=== PATIENT | female | born 1935 | race Caucasian/White ===

== ENCOUNTER → 2016-12-16 | Outpatient (CLI) | payer BC | LOC: FIMAGING 07:54 | PROVIDERS: ATTEND Internal Medicine | DX: M79.89 Other specified soft tissue disorders (principal); G35 Multiple sclerosis ==

== ENCOUNTER 2018-04-11 10:23 | Inpatient (IN) | payer BC ==
[2018-04-11] MEDS ORDERED: NS 1,000 ML IV ONE (10:26)
--- NOTE | 2018-04-11 10:30 | EDPHY ---
H & P Time Seen by Provider: 04/11/18 10:29 HPI/ROS: CHIEF COMPLAINT: Stroke alert HISTORY OF PRESENT ILLNESS: The patient is brought in emergently by paramedics after she was observed to developed right-sided weakness and difficulty with speech at 8:00 a.m. This morning. The patient has a history of chronic left- sided weakness secondary to multiple sclerosis. The patient is brought in by paramedics with reported improvement in her right-sided weakness and speech impediment. The patient arrives in the emergency department without acute complaints. She denies headache. REVIEW OF SYSTEMS: A comprehensive 10 point review of systems is otherwise negative aside from elements mentioned in the history of present illness. Source: Patient, Family, EMS - Personal History Current Tetanus/Diphtheria Vaccine: Yes - Medical/Surgical History Other PMH: Past medical history: Multiple sclerosis - Family History Significant Family History: No pertinent family hx - Social History Smoking Status: Never smoked - Physical Exam Exam: General Appearance: Alert, no distress Eyes: Pupils equal and round no pallor or injection ENT, Mouth: Mucous membranes moist Respiratory: There are no retractions, lungs are clear to auscultation Cardiovascular: Regular rate and rhythm Gastrointestinal: Abdomen is soft and nontender, no masses, bowel sounds normal Neurological: Alert and oriented x4, chronic dense left weakness from her multiple sclerosis, right pronator drift, right truncal weakness noted, 5-out of 5 strength right lower extremity, no facial droop appreciated, slightly abnormal finger to nose Skin: Warm and dry, no rashes Musculoskeletal: Neck is supple nontender Extremities: symmetrical, full range of motion Constitutional: Initial Vital Signs Temperature (C) 36.3 C 04/11/18 10:44 Heart Rate 60 04/11/18 10:44 Respiratory Rate 12 04/11/18 10:44 Blood Pressure 93/53 L 04/11/18 10:44 O2 Sat (%) 94 04/11/18 10:44 O2 Delivery Mode Room Air Allergies/Adverse Reactions: No Known Allergies Allergy (Unverified 04/11/18 10:44) Medical Decision Making - Diagnostics EKG Interpretation: EKG: Interpreted by me. Impression: NSR, prolonged OH. Imaging Results: Imaging Impressions Head CT 04/11/18 10:24 Impression: 1. Moderate atrophy. 2. No hemorrhage, mass effect, or definite acute peripheral infarct. 3. Extensive nonspecific hypodensities in the white matter of bilateral cerebral hemispheres similar to the prior studies probably related to underlying MS with superimposed microvascular ischemic disease. Other possibility includes post-infectious/post-inflammatory sequela. Small white matter lacunar infarcts may also have this appearance. If symptoms worsen, additional imaging may be necessary. Findings discussed with Raul Monreal M.D. at 10:34 hour, 04/11/2018. ED Course/Re-evaluation: Patient presents to the ED with a reported history of acute right-sided weakness and difficulty with speech that began at 8:00 a.m. This morning. The patient has a history of multiple sclerosis. She reports she is usually able to sit up on her own. She typically is able to brush her teeth without difficulty using her right hand. The patient has no known history of prior stroke by her report. She denies any acute headache. The patient was taken for a stat noncontrast head CT scan which demonstrated evidence of extensive white matter disease. There is no evidence of an acute intracranial hemorrhage. [facility] was consulted at 10:30 a.m. for an ED evaluation. 11:00 a.m.: Neurology feels patient's neurologic symptoms or more likely related to a toxic, encephalopathic or metabolic issue and not related to ischemia. They recommend that tPA not be given. 11:30 a.m.: Collateral information is obtained from the family. The patient is typically able to transfer with a electric scooter. She is unable to safely ambulate currently likely secondary to dehydration. Urinalysis still pending. She will be admitted to the hospitalist for further evaluation treatment. Differential Diagnosis: Differential diagnosis considered includes stroke, TIA, dehydration, metabolic abnormality, urinary tract infection - Data Points Laboratory Results: Laboratory Results 04/11/18 10:58 04/11/18 10:58 04/11/18 04/11/18 04/11/18 10:58 10:58 10:31 WBC 8.07 10^3/uL 10^3/uL (3.80-9.50) RBC 3.92 10^6/uL L 10^6/uL (4.18-5.33) Hgb 12.6 g/dL g/dL (12.6-16.3) POC Hgb 12.9 gm/dL gm/dL (12.6-16.3) Hct 38.5 % % (38.0-47.0) POC Hct 38 % % (38-47) MCV 98.2 fL fL (81.5-99.8) MCH 32.1 pg pg (27.9-34.1) MCHC 32.7 g/dL g/dL (32.4-36.7) RDW 15.4 % H % (11.5-15.2) Plt Count 319 10^3/uL 10^3/uL (150-400) MPV 9.8 fL fL (8.7-11.7) Neut % (Auto) 71.3 % % (39.3-74.2) Lymph % (Auto) 17.7 % % (15.0-45.0) Dare % (Auto) 8.2 % % (4.5-13.0) Eos % (Auto) 1.7 % % (0.6-7.6) Baso % (Auto) 0.7 % % (0.3-1.7) Nucleat RBC Rel Count 0.0 % % (0.0-0.2) Absolute Neuts (auto) 5.75 10^3/uL 10^3/uL (1.70-6.50) Absolute Lymphs (auto) 1.43 10^3/uL 10^3/uL (1.00-3.00) Absolute Monos (auto) 0.66 10^3/uL 10^3/uL (0.30-0.80) Absolute Eos (auto) 0.14 10^3/uL 10^3/uL (0.03-0.40) Absolute Basos (auto) 0.06 10^3/uL 10^3/uL (0.02-0.10) Absolute Nucleated RBC 0.00 10^3/uL 10^3/uL (0-0.01) Immature Gran % 0.4 % % (0.0-1.1) Immature Gran # 0.03 10^3/uL 10^3/uL (0.00-0.10) POC Sodium 145 mEq/L mEq/L (135-145) Sodium 143 mEq/L mEq/L (135-145) POC Potassium 4.0 mEq/L mEq/L (3.3-5.0) Potassium 4.0 mEq/L mEq/L (3.5-5.2) POC Chloride 109 mEq/L mEq/L (97-110) Chloride 111 mEq/L H mEq/L (97-110) Carbon Dioxide 22 mEq/l mEq/l (22-31) Anion Gap 10 mEq/L mEq/L (6-14) POC BUN 44 mg/dL H mg/dL (7-23) BUN 46 mg/dL H mg/dL (7-23) Creatinine 0.9 mg/dL mg/dL (0.6-1.0) POC Creatinine 1.0 mg/dL mg/dL (0.6-1.0) Estimated GFR 60 Glucose 112 mg/dL H mg/dL (70-100) POC Glucose 128 mg/dL H mg/dL (70-100) Calcium 9.4 mg/dL mg/dL (8.5-10.4) POC Troponin I 04/11/18 10:30 WBC RBC Hgb POC Hgb Hct POC Hct MCV MCH MCHC RDW Plt Count MPV Neut % (Auto) Lymph % (Auto) Dare % (Auto) Eos % (Auto) Baso % (Auto) Nucleat RBC Rel Count Absolute Neuts (auto) Absolute Lymphs (auto) Absolute Monos (auto) Absolute Eos (auto) Absolute Basos (auto) Absolute Nucleated RBC Immature Gran % Immature Gran # POC Sodium Sodium POC Potassium Potassium POC Chloride Chloride Carbon Dioxide Anion Gap POC BUN BUN Creatinine POC Creatinine Estimated GFR Glucose POC Glucose Calcium POC Troponin I 0.00 ng/mL ng/mL (0.00-0.08) Medications Given: Discontinued Medications Sodium Chloride (Ns) 1,000 mls @ 0 mls/hr IV ONCE ONE; Wide Open PRN Reason: Protocol Stop: 04/11/18 10:27 Last Admin: 04/11/18 10:54 Dose: 1,000 mls Point of Care Test Results: Chemistry 04/11/18 04/11/18 10:31 10:30 POC Sodium 145 mEq/L mEq/L (135-145) POC Potassium 4.0 mEq/L mEq/L (3.3-5.0) POC Chloride 109 mEq/L mEq/L (97-110) POC BUN 44 mg/dL H mg/dL (7-23) POC Creatinine 1.0 mg/dL mg/dL (0.6-1.0) POC Glucose 128 mg/dL H mg/dL (70-100) POC Troponin I 0.00 ng/mL ng/mL (0.00-0.08) ISTAT H&H 04/11/18 10:31 POC Hgb 12.9 gm/dL gm/dL (12.6-16.3) POC Hct 38 % % (38-47) Departure - Departure Disposition: [facility] Inpatient Acute Clinical Impression: Dehydration, Generalized weakness, Multiple sclerosis Condition: Fair Referrals: Patient,NotPresent [Unknown] - As per Instructions
--- NOTE | 2018-04-11 10:49 | CPEKG ---
Test Reason : OPEN Blood Pressure : / mmHG Vent. Rate : 058 BPM Atrial Rate : 058 BPM P-R Int : 220 ms QRS Dur : 087 ms QT Int : 462 ms P-R-T Axes : 063 -21 -38 degrees QTc Int : 454 ms Sinus rhythm Prolonged WI interval Inferior infarct, old Confirmed by Raul Monreal ([id number]) on 04/11/2018 10:48:38 AM Referred By: Raul Monreal Confirmed By:Raul Monreal
[2018-04-11 11:09] LABS: PLATELET COUNT 319 10^3/uL (150-400)
--- NOTE | 2018-04-11 11:25 | PDCONSULT ---
Loop Tacker Note: [facility] Note Demographics Consult Type: Acute Stroke First Name: Veronica Last Name: Herminio Date of : 1935 Age: 83 Gender: Female Referring Provider: Dr Monreal Time of initial page ([place] ): 04/11/2018 10:38 Time of return call (): 04/11/2018 10:39 Time Ready to Initiate Telemed Consult (): 04/11/2018 10:42 HPI Additional History (Free Text): 83 year old woman history of multiple sclerosis uses a power chair at Baseline. She was in her power chair this morning ready for bahai. When family came back to find her she was asleep in her chair which is unusual for her. They woke her up in her speech seem more difficult and she is having generalized weakness. If Baseline she is paralyzed on the left side. Her right side feels weaker than normal. Her speech is slightly slurred. CT scan is performed in shows chronic white matter changes no acute abnormality. Exam Mental Status: awake, alert + oriented x 3, follows commands Language: very mild dysarthria and soft voice (less than normal for her) Cranial Nerves: extra ocular movements intact, normal visual tellez, normal facial sensation Motor: R upper extremity weakness, L upper extremity weakness, L lower extremity weakness, Right mild drift with asterixis like movements. Left plegia is chronic NIHSS Time (): 04/11/2018 10:58 LOC 1a: 0 = Alert; keenly responsive LOC 1b: 0 = Answers both questions correctly LOC Commands: 0 = Performs both tasks correctly Best Gaze: 0 = Normal Visual: 0 = No visual loss Facial Palsy: 0 = Normal symmetrical movements Motor Arm L: 4 = No movement Motor Arm R: 1 = Drift; limb holds 90 (or 45) degrees, but drifts down before full 10 seconds; does not hit bed or other support Motor Leg L: 3 = No effort against gravity; leg falls to bed immediately Motor Leg R: 1 = Drift; leg falls by the end of the 5-second period but does not hit bed Limb Ataxia: 0 = Absent Sensory: 0 = Normal; no sensory loss Best Language: 0 = No aphasia; normal Dysarthria: 1 = Sprn-yr-peplizuh dysarthria; patient slurs at least some words Extinction + Inattention: 0 = No abnormality NIHSS: [address]: no bleed Assessment: Generalized weakness and lethargy superimposed on her baseline left sided paralysis. Favor a systemic illness over acute stroke. Plan Lytic/Intervention: NOT IV or IA candidate Labs: B 12, CBC, Comprehensive metabolic panel, Lipid Panel, TSH, UA Imaging: MRI brain without Therapy/Eval: NPO until cleared by swallow evaluation, PT/OT, Speech/Swallow therapy consult VTE Prophylaxis: SCD, Lovenox 40 mg subcutaneously q day Other: telemetry monitoring, I have discussed my recommendations with the referring provider Disposition: admit [facility] Telemedicine: Interactive 2 way audio and visual telecommunication technology was utilized during this visit. Provider Location: [place]
--- NOTE | 2018-04-11 12:04 | PDGENHP ---
History and Physical - Chief Complaint Weakness - History of Present Illness Patient is an 82-year-old female with past medical history of advanced multiple sclerosis, hypertension, and hypothyroid who presented to the emergency room with complaints of new right-sided weakness. Patient is dependent on a motorized wheelchair to get around at baseline and was sitting in her chair and when the daughter went to check on her she noticed that she was asleep in the chair, which per the daughter is unusual for her mother to do. They woke her up and she was complaining of right-sided weakness and difficulty with speech. This occurred at approximately 8:00 a.m. This morning. She has chronic left- sided weakness and atrophy from her multiple sclerosis, but felt that she had new right-sided weakness and speech difficulty. In the emergency department the patient felt that her speech had returned to baseline but she still had right-sided weakness. She denied any nausea vomiting, headache, blurry vision, racing heart, chest pain or any other acute complaints. History Information - Allergies/Home Medication List Allergies/Adverse Reactions: banana Allergy (Verified 04/11/18 13:23) Vomiting Home Medications: Hydrochlorothiazide [HCTZ (*)] 12.5 mg PO DAILY 04/11/18 [Last Taken Unknown] Levothyroxine [Synthroid 100 mcg (*)] 100 mcg PO DAILY06 04/11/18 [Last Taken Unknown] Tolterodine Tartrate [Detrol] 2 mg PO DAILY 04/11/18 [Last Taken Unknown] Valsartan 320 mg PO DAILY 04/11/18 [Last Taken Unknown] Zolpidem Tartrate [Ambien] 10 mg PO HS PRN 04/11/18 [Last Taken Unknown] amLODIPine BESYLATE [Norvasc 5 mg (*)] 5 mg PO DAILY 04/11/18 [Last Taken Unknown] tiZANidine HCL [Zanaflex] 8 mg PO HS 04/11/18 [Last Taken Unknown] I have personally reviewed and updated: family history, medical history, social history, surgical history - Past Medical History Additional medical history: htn,hypothyroid, ms - Surgical History Additional surgical history: hip surgery for fracture, - Family History Positive for: cancer - Social History Smoking Status: Never smoked Review of Systems Review of Systems: ROS: 10pt was reviewed & negative except for what was stated in HPI & below Physical Exam Physical Exam: Temp Pulse Resp BP Pulse Ox 36.3 C 61 14 102/59 L 95 04/11/18 10:48 04/11/18 10:48 04/11/18 10:48 04/11/18 10:48 04/11/18 10:48 Constitutional: no apparent distress, appears nourished, not in pain Eyes: PERRL, anicteric sclera, EOMI Ears, Nose, Mouth, Throat: moist mucous membranes, hearing normal, ears appear normal, no oral mucosal ulcers Cardiovascular: regular rate and rhythym, no murmur, rub, or gallop, No edema Respiratory: no respiratory distress, no rales or rhonchi, clear to auscultation Gastrointestinal: normoactive bowel sounds, soft, non-tender abdomen, no palpable masses Genitourinary: no bladder fullness, no bladder tenderness Skin: warm, normal color, no rashes or abrasions, no fluctuance, no induration, No mottled Musculoskeletal: full muscle strength, no muscle tenderness, normal joint ROM, no joint effusions Psychiatric: interacting appropriately, not anxious, not encephalopathic, thought process linear Lymph, Heme, Immunologic: no cervical LAD, no supraclavicular LAD Lab Data & Imaging Review 04/11/18 10:58 04/11/18 10:58 WBC 8.07 10^3/uL (3.80-9.50) 04/11/18 10:58 RBC 3.92 10^6/uL (4.18-5.33) L 04/11/18 10:58 Hgb 12.6 g/dL (12.6-16.3) 04/11/18 10:58 POC Hgb 12.9 gm/dL (12.6-16.3) 04/11/18 10:31 Hct 38.5 % (38.0-47.0) 04/11/18 10:58 POC Hct 38 % (38-47) 04/11/18 10:31 MCV 98.2 fL (81.5-99.8) 04/11/18 10:58 MCH 32.1 pg (27.9-34.1) 04/11/18 10:58 MCHC 32.7 g/dL (32.4-36.7) 04/11/18 10:58 RDW 15.4 % (11.5-15.2) H 04/11/18 10:58 Plt Count 319 10^3/uL (150-400) 04/11/18 10:58 MPV 9.8 fL (8.7-11.7) 04/11/18 10:58 Neut % (Auto) 71.3 % (39.3-74.2) 04/11/18 10:58 Lymph % (Auto) 17.7 % (15.0-45.0) 04/11/18 10:58 [place] % (Auto) 8.2 % (4.5-13.0) 04/11/18 10:58 Eos % (Auto) 1.7 % (0.6-7.6) 04/11/18 10:58 Baso % (Auto) 0.7 % (0.3-1.7) 04/11/18 10:58 Nucleat RBC Rel Count 0.0 % (0.0-0.2) 04/11/18 10:58 Absolute Neuts (auto) 5.75 10^3/uL (1.70-6.50) 04/11/18 10:58 Absolute Lymphs (auto) 1.43 10^3/uL (1.00-3.00) 04/11/18 10:58 Absolute Monos (auto) 0.66 10^3/uL (0.30-0.80) 04/11/18 10:58 Absolute Eos (auto) 0.14 10^3/uL (0.03-0.40) 04/11/18 10:58 Absolute Basos (auto) 0.06 10^3/uL (0.02-0.10) 04/11/18 10:58 Absolute Nucleated RBC 0.00 10^3/uL (0-0.01) 04/11/18 10:58 Immature Gran % 0.4 % (0.0-1.1) 04/11/18 10:58 Immature Gran # 0.03 10^3/uL (0.00-0.10) 04/11/18 10:58 POC Sodium 145 mEq/L (135-145) 04/11/18 10:31 Sodium 143 mEq/L (135-145) 04/11/18 10:58 POC Potassium 4.0 mEq/L (3.3-5.0) 04/11/18 10:31 Potassium 4.0 mEq/L (3.5-5.2) 04/11/18 10:58 POC Chloride 109 mEq/L (97-110) 04/11/18 10:31 Chloride 111 mEq/L (97-110) H 04/11/18 10:58 Carbon Dioxide 22 mEq/l (22-31) 04/11/18 10:58 Anion Gap 10 mEq/L (6-14) 04/11/18 10:58 POC BUN 44 mg/dL (7-23) H 04/11/18 10:31 BUN 46 mg/dL (7-23) H 04/11/18 10:58 Creatinine 0.9 mg/dL (0.6-1.0) 04/11/18 10:58 POC Creatinine 1.0 mg/dL (0.6-1.0) 04/11/18 10:31 Estimated GFR 60 04/11/18 10:58 Glucose 112 mg/dL (70-100) H 04/11/18 10:58 POC Glucose 128 mg/dL (70-100) H 04/11/18 10:31 Calcium 9.4 mg/dL (8.5-10.4) 04/11/18 10:58 POC Troponin I 0.00 ng/mL (0.00-0.08) 04/11/18 10:30 Visualized and Interpreted imaging results: Yes Visualized and Interpreted EKG results: Yes Assessment & Plan Assessment: Generalized weakness- I discussed the case with the emergency room physician. Neurology was consulted who felt that this did not represent an acute stroke but likely increased generalized weakness in the setting of dehydration. I reviewed the CT which showed no acute abnormality and only chronic changes. Vital signs within normal limits, and labs without any abnormality suggestive of infection or other process. MRI obtained which shows worsening of her white matter disease. Her worsening weakness may represent either an MS flare or worsening of her multiple sclerosis overall. 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 Has chronic left-sided weakness with atrophy. -continue tizanidine for spasticity -continue Detrol Hypertension- blood pressure on the low side here. Takes Norvasc, hydrochlorothiazide, and valsartan. Will hold the diuretic for now. Hypothyroid- continue home Synthroid Prophylaxis- SCDs and Lovenox Fluids- intravenous saline Electrolytes- within normal limits Nutrition- NPO until clear by speech Cor- DNR Dispo- observation for generalized weakness
[2018-04-11] MEDS ORDERED: ONDANSETRON DISINTEGRATING 4 MG TAB PO PRN (12:13)
[2018-04-11] MEDS ORDERED: ACETAMINOPHEN 325 MG TAB PO PRN (12:13)
[2018-04-11] MEDS ORDERED: ONDANSETRON 4 MG/2 ML VIAL IVP PRN (12:13)
[2018-04-11] MEDS ORDERED: NS 1,000 ML IV SCH (12:15)
[2018-04-11] MEDS ORDERED: NS 500 ML IV ONE (23:39)
[2018-04-12 04:53] LABS: PLATELET COUNT 303 10^3/uL (150-400)
[2018-04-12] MEDS: LEVOTHYROXINE 100 MCG TAB PO SCH (06:12)
--- NOTE | 2018-04-12 10:36 | GCON ---
NEUROLOGY CONSULT REFERRING PHYSICIAN: Burt Walker MD CHIEF COMPLAINT: Multiple sclerosis. HISTORY OF PRESENT ILLNESS: Ms. Durham is a very pleasant 83-year-old lady who has a previous diagnosis of primary progressive multiple sclerosis. She sees Neurology as an outpatient but cannot recall the neurologist's name this morning. In any case, she is not on disease-modifying therapy due to her diagnosis per the patient. She is on symptomatic medications and has severe disability, including spastic left-sided hemiplegia and waxing and waning generalized weakness. Her MRI done with this admission shows severe, diffuse white matter disease without any diffusion-weighted abnormalities to suggest acute stroke or acute demyelination. Apparently, the patient became encephalopathic yesterday and unresponsive for a period of time and felt, when she became lucid again, that she had generalized weakness but note noticed it more on her right because this is her only functional side. She was brought in to the hospital. Initial labs showed a normal creatinine. Urinalysis shows 2+ leukocyte esterase, 25-50 urine white blood cells and 3+ bacteria. She has no symptoms of dysuria per patient. She also has some fluctuating blood pressures. She is feeling better after getting intravenous hydration. No seizures or convulsive events. REVIEW OF SYSTEMS: A 10-point review of systems was done, only pertinent to the HPI. For past medical history, social history, family history, home medications and allergies, see Dr. Walker's H and P. PHYSICAL EXAM: VITAL SIGNS: Blood pressure 130/70, afebrile 36.6, respirations 14 per minute. GENERAL: In no acute distress. Very pleasant. She is awake and alert and lucid. NEUROLOGIC: There is no aphasia on exam. No dysarthria on exam this morning. She has spastic left-sided hemiplegia and weakness on the right side as well which, according to the patient, is chronic as well. She feels back to her baseline but "generally weak." No convulsive events or myoclonus. IMPRESSION AND PLAN: 1. Multiple sclerosis. 2. Urinary tract infection. 3. Generalized weakness Overall, the patient's clinical history suggests pseudo-exacerbation symptoms in the setting of advanced multiple sclerosis and urinary tract infection. This was discussed along with the patient, nursing and the hospitalist team. They plan to treat with antibiotics and fluids as needed. I agree with this plan. MRI brain does not show any diffusion-weighted abnormalities to suggest acute stroke or acute demyelination at this point. PT, OT, Speech Therapy can be consulted to help with therapies and disposition planning. No further recommendations. We will continue to follow this very pleasant patient as needed. Please do not hesitate to call if there are any questions or changes in neurologic status with her. Seventy total minutes floor time reviewing EHR, over 50% in counseling and coordination of care. /[id number]/MODL MTDD
[2018-04-12] MEDS: ENOXAPARIN 40 MG/0.4 ML SYR SC SCH (10:49)
[2018-04-12] MEDS: amLODIPine BESYLATE 5 MG TAB PO SCH (10:50)
[2018-04-12] MEDS: VALSARTAN 160 MG TAB PO SCH (10:50)
[2018-04-12] MEDS: TOLTERODINE TARTRATE 1 MG TAB PO SCH (10:50)
--- NOTE | 2018-04-12 11:24 | HOSPPROG ---
Hospitalist Progress Note Assessment/Plan: 83y female with c/o weakness and pain. First encounter, chart reviewed. #Acute on chronic generalized weakness -Neurology was consulted, D/W Dr Raphael -MRI no acute stroke -likely related to dehydration ad UTI -monitor on telemetry #UTI -start CTX -send urine cx #Multiple sclerosis -primary progressive MS. Has chronic left-sided weakness with atrophy. -continue tizanidine for spasticity -continue Detrol #Hypertension - blood pressure on the low side here -Takes Norvasc, hydrochlorothiazide, and valsartan -Will hold the diuretic for now #Dehydration -cont IVF -poor po intake #Hypothyroid - continue home Synthroid Prophylaxis- SCDs and Lovenox Fluids- intravenous saline Electrolytes- within normal limits Nutrition- NPO until clear by speech Cor- DNR #Dispo -change to inpt staus -needs further therapy and eval -IV abx -Await cx results -PT/OT -HHC vs SNF, lives at home with daughter and son in law -home alone during the day Subjective: Feels better but still very tired and weak. No pain. No other issues. Objective: Vital Signs Temp Pulse Resp BP Pulse Ox 37.0 C 92 20 167/74 H 91 L 04/12/18 11:15 04/12/18 11:15 04/12/18 11:15 04/12/18 11:15 04/12/18 11:15 Laboratory Results 04/12/18 04:33 04/12/18 04:33 04/11/18 04/12/18 04/13/18 05:59 05:59 05:59 Intake Total 2225 Output Total 570 500 Balance 1655 -500 - Physical Exam Constitutional: appears nourished, not in pain, chronically ill appearing Eyes: PERRL, anicteric sclera, EOMI Ears, Nose, Mouth, Throat: moist mucous membranes, hearing normal, ears appear normal Cardiovascular: regular rate and rhythym, No JVD, No edema Respiratory: no respiratory distress, no rales or rhonchi, reduced air movement Gastrointestinal: normoactive bowel sounds, No tenderness, No ascites Skin: warm, normal color, No erythema Musculoskeletal: no joint effusions, generalized weakness, No normal joint ROM Neurologic: AAOx3, weakness Psychiatric: not anxious, not encephalopathic, thought process linear ICD10 Worksheet Patient Problems: Problems Problem Status Onset Dehydration Acute Generalized weakness Acute Multiple sclerosis Acute
--- NOTE | 2018-04-12 12:40 | PDMN ---
Medical Necessity Medical necessity: MCG: M300 UTI- A-2 days: pt with acute on chronic weakness with dehydration, speech difficulties , and UTI PT with PMHx: Primary progressive MS, HTN, Hypothyroid, pt status changed to INPT 04/12 for ongoing med nec care- further eval, monitoring and tx of UTI pt will begin IV abx, awaiting urine CX, further tele monitoring, pt also has poor PO intake, will be NPO until cleared by speech. PT/OT.
--- NOTE | 2018-04-12 13:27 | ASMTCMCOM ---
CM Note CM Note Notes: CM spoke to Giselle Mota NP regarding this pt. Pt is a 83 y/o female admitted for weakness. Pt uses a motorized wheelchair at baseline. Therapies have been ordered and awaiting recommendations. Needs are TBD at this time. CM to follow. Plan: TBD Date Signed: 04/12/2018 01:23 PM Electronically Signed By:DARCI Forman
[2018-04-13] MEDS: LEVOTHYROXINE 100 MCG TAB PO SCH (05:22)
[2018-04-13 05:44] LABS: PLATELET COUNT 327 10^3/uL (150-400)
[2018-04-13] MEDS: ENOXAPARIN 40 MG/0.4 ML SYR SC SCH (08:26)
[2018-04-13] MEDS: VALSARTAN 160 MG TAB PO SCH (08:26)
[2018-04-13] MEDS: TOLTERODINE TARTRATE 1 MG TAB PO SCH (08:27)
[2018-04-13] MEDS: amLODIPine BESYLATE 5 MG TAB PO SCH (08:27)
--- NOTE | 2018-04-13 11:10 | ASMTCMCOM ---
CM Note CM Note Notes: CM met w/ pt for dispo planning. Therapies are both recommending HC vs SNF. Pt reports that she uses a motorized wheelchair to get around. Pt feels that she is pretty much at her baseline. Pt reports that she has left sided weakness due to her MS. Pt would like HC. CM made a referral to [facility]. [facility] is able to accept. CM to follow. Plan: [facility]: PT, OT, SPL Date Signed: 04/13/2018 11:10 AM Electronically Signed By:DARCI Forman
--- NOTE | 2018-04-13 14:23 | HOSPPROG ---
Hospitalist Progress Note Assessment/Plan: 83y female with c/o weakness and pain. First encounter, chart reviewed. #Acute on chronic generalized weakness -was seen and evaluated by neurology -MRI shows no acute stroke -likely related to dehydration (patient says she doesn't drink much water and is on HCTZ) -tele shows sinus w infrequent PVC -she is feeling much closer to her baseline #pyuria -start CTX (has had 2 doses) -urine cx shows normal kellie #Multiple sclerosis -primary progressive MS. Has chronic left-sided weakness with atrophy. -continue tizanidine for spasticity -continue Detrol #Hypertension - resumed home medications #hypokalemia -added oral dose of K #Dehydration -resolved, dc fluids #Hypothyroid - Synthroid #plan: will dc in the morning and write out parameters as to when to hold her bp meds. Subjective: Nancy is feeling closer to her baseline, doesn't like to drink water because it is so difficult for her to get to the bathroom Objective: Vital Signs Temp Pulse Resp BP Pulse Ox 37.0 C 90 17 158/76 H 91 L 04/13/18 11:45 04/13/18 11:45 04/13/18 11:45 04/13/18 11:45 04/13/18 11:45 Laboratory Results 04/13/18 05:32 04/13/18 05:32 04/12/18 04/13/18 04/14/18 05:59 05:59 05:59 Output Total 1675 Balance -1675 - Physical Exam Constitutional: not in pain, chronically ill appearing Eyes: PERRL Ears, Nose, Mouth, Throat: hearing normal Cardiovascular: regular rate and rhythym Respiratory: no respiratory distress Gastrointestinal: normoactive bowel sounds Skin: warm Musculoskeletal: other (left side with paralysis due to the MS, can bear weight on left but unable to walk, is wheelchair bound) Neurologic: AAOx3 Psychiatric: interacting appropriately, not anxious, not encephalopathic ICD10 Worksheet Patient Problems: Problems Problem Status Onset Dehydration Acute Generalized weakness Acute Multiple sclerosis Acute
[2018-04-13] MEDS: POTASSIUM CL 20 MEQ TAB PO SCH (14:48)
[2018-04-13] MEDS ORDERED: MELATONIN 3 MG TAB PO SCH (21:00)
[2018-04-14] MEDS: LEVOTHYROXINE 100 MCG TAB PO SCH (05:16)
[2018-04-14] MEDS: VALSARTAN 160 MG TAB PO SCH (08:26)
[2018-04-14] MEDS: ENOXAPARIN 40 MG/0.4 ML SYR SC SCH (08:26)
[2018-04-14] MEDS: amLODIPine BESYLATE 5 MG TAB PO SCH (08:26)
[2018-04-14] MEDS: TOLTERODINE TARTRATE 1 MG TAB PO SCH (08:26)
[2018-04-14] MEDS: POTASSIUM CL 20 MEQ TAB PO SCH (08:26)
[2018-04-14] MEDS ORDERED: HYDROCHLOROTHIAZIDE 12.5 MG CAP PO SCH (09:00)
--- NOTE | 2018-04-14 11:03 | HOSPPROG ---
Hospitalist Progress Note Assessment/Plan: 83y female with c/o weakness and pain. #Acute on chronic generalized weakness -was seen and evaluated by neurology -MRI shows no acute stroke -likely related to dehydration (patient says she doesn't drink much water and is on HCTZ) -tele shows sinus w infrequent PVC -she is feeling much better #pyuria -start CTX (has had 2 doses) -urine cx shows normal kellie #Multiple sclerosis -primary progressive MS. Has chronic left-sided weakness with atrophy. -continue tizanidine for spasticity -continue Detrol #Hypertension - resumed home medications #hypokalemia -added oral dose of K #Dehydration -resolved, dc fluids #Hypothyroid - Synthroid #plan: dc w home care with close f/u w her PCP Subjective: Nancy is feeling well, no complaints. Objective: Vital Signs Temp Pulse Resp BP Pulse Ox 36.4 C 75 16 145/87 H 97 04/14/18 07:34 04/14/18 07:34 04/14/18 07:34 04/14/18 08:26 04/14/18 07:34 Laboratory Results 04/13/18 05:32 04/13/18 05:32 04/13/18 04/14/18 04/15/18 05:59 05:59 05:59 Intake Total 350 Output Total 1675 Balance -1675 350 - Physical Exam Constitutional: no apparent distress, appears nourished, not in pain Eyes: PERRL Ears, Nose, Mouth, Throat: hearing normal Respiratory: no respiratory distress Skin: warm Musculoskeletal: generalized weakness Neurologic: AAOx3 Psychiatric: interacting appropriately, not anxious, not encephalopathic ICD10 Worksheet Patient Problems: Problems Problem Status Onset Dehydration Acute Generalized weakness Acute Multiple sclerosis Acute
--- NOTE | 2018-04-14 11:08 | PDIAF ---
- Diagnosis Diagnosis: acute on chronic weakness, MS, htn, dehydration Code Status: Do Not Resuscitate - Medication Management Discharge Medications: electronically signed and located in the Home Medication List. - Orders Services needed: Home Care, Registered Nurse, Physical Therapy, Occupational Therapy Home Care Face to Face: I certify that this patient was under my care and that I had the required [id number] encounter meeting the encounter requirements on the discharge day. My findings support the fact that the patient is homebound as defined in Home Care Face to Face Continued: CMS Chapter 7 Medicare Benefits Manual 30.1.1 , The condition of the patient is such that there exists a normal inability to leave home and consequently, leaving home would require a considerable and taxing effort. Diet Recommendation: no restrictions on diet Diet Texture: Dysphagia 3 - Advanced - Moist, Bite-Size, Thin Liquids Additional Instructions: do not take your diuretic, HCTZ, if you are dehydrated or sick check your blood pressure in the morning; if the systolic (top #) is <110; hold your blood pressure medications-the Norvasc, Valsartan, and HCTZ try Melatonin at night for sleep; would recommend stopping Ambien or trying to take half your dose; this medication can cause weakness Take good care of yourself!!!! - Follow Up Care Current Providers and Referrals: Patient,NotPresent [Unknown] - As per Instructions
[2018-04-14 11:25] VITALS: BP 123/94
--- NOTE | 2018-04-14 11:34 | ASMTLACE ---
LACE Length of stay for Answers: 2 days current admission Acuity / Level of Answers: Yes Care: Did the patient have an inpatient admission? Comorbidities - select Answers: Other Notes: MS all that apply # of Emergency department Answers: 1-2 visits in the last 6 months Score: 7 Date Signed: 04/14/2018 11:34 AM Electronically Signed By:Nancy Mckeon RN
--- NOTE | 2018-04-14 11:57 | ASMTCMCOM ---
CM Note CM Note Notes: Spoke w/pt and dtr, will dc home w/[facility] (RN/PT/OT/STICK WELDER) Date Signed: 04/14/2018 11:57 AM Electronically Signed By:Nancy Mckeon RN
--- NOTE | 2018-04-14 12:03 | ASMTDCNOTE ---
Case Management Discharge Discharge Order Complete? Answers: Yes Patient to Obtain Answers: via Family Medications Transportation Arranged Answers: Family/Friends Faxed Final Orders Answers: Yes Agency/Facility Transfer Answers: Yes Report Printed & Faxed to Receiving Agency Family Notified Answers: Yes Discharge Comments Notes: D/w KILN MECHANIC, final orders in[facility]rese [facility] at [facility] notifed, KILN MECHANIC adding CONSUMER EDUCATION SPECIALIST. Date Signed: 04/14/2018 12:02 PM Electronically Signed By:Nancy Mckeon RN
--- NOTE | 2018-04-14 13:38 | GDS ---
[f rep st] DISCHARGE SUMMARY DISCHARGE DIAGNOSES: 1. Acute on chronic weakness. 2. Pyuria. 3. Multiple sclerosis with chronic left-sided weakness and atrophy. 4. Hypertension. 5. Hypokalemia. 6. Dehydration. 7. Hypothyroidism. HISTORY OF PRESENT ILLNESS: Briefly, the patient is a very sweet 83-year-old woman with a history of multiple sclerosis. She had become encephalopathic and unresponsive for a period of time and became lucid. There was concern that she had a stroke. Vasquez Mike was called and consulted. They thought it was likely related to a medical condition and not a stroke. She had an MRI done, which showed severe diffuse white matter disease without any diffusion-weighted abnormalities to suggest acute stroke or acute demyelination. She was treated with IV fluids. In addition, there was concern that she had a urinary tract infection. She received full treatment with ceftriaxone. Today, she is markedly better. She will be discharged home with home care. The patient lives with her daughter and son-in-law. HOSPITAL COURSE PER PROBLEM: 1. Acute on chronic generalized weakness. MRI showed no acute stroke. In talking with the patient, I suspect it was mainly related to dehydration. She is on hydrochlorothiazide. She does not like to drink water, because it is so difficult for her to get to the bathroom secondary to her MS. I recommended that she avoid hydrochlorothiazide if she is ever sick or not taking in adequate intake. 2. Pyuria. She was treated with ceftriaxone. Her urine culture shows normal kellie. 3. MS. This is primarily progressive MS. She has chronic left-sided weakness with atrophy. She is on Tizanidine for spasticity, also on Detrol. 4. Hypertension. Resumed her home medications. 5. Hypokalemia. She was given a dose of oral potassium. 6. Dehydration, resolved with fluids. 7. Hypothyroidism on Synthroid. DISCHARGE CONDITION: Stable. Blood pressure is 123/94, heart rate of 87, respiratory rate 22, O2 saturation on room air 93%, temperature 36.3 Celsius. MEDICATIONS AT DISCHARGE: Please see the EMR. DISCHARGE INSTRUCTIONS: 1. Recommending to not take her hydrochlorothiazide if she is dehydrated or sick. 2. Check her blood pressure in the morning. If her systolic is less than 110 recommending she hold her blood pressure medications. This may contribute to her weakness. 3. Recommending to stop Ambien at night or take half the dose, or she can substitute this with melatonin. Greater than 30 minutes spent discharging and coordinating her care. /[id number]/MODL MTDD
--- NOTE | 2018-04-14 16:42 | ASDISCHSUM ---
Discharge Information Plan Status:Home with Home Health Medically Cleared to Leave: Discharge Date:04/14/2018 01:03 PM CM D/C Disposition:Home Health Service ADT D/C Disposition:Home Health Service Projected Discharge Date:04/15/2018 11:00 AM Transportation at D/C:Family Discharge Delay Reason: Follow-Up Date:04/15/2018 11:00 AM Discharge Slot: Final Diagnosis: Placement Information Referral Type:*Home Health Care Services Referral ID:[id number] Provider Name:[facility] Address 1:[address] Address 2: City:[place] Selection Factors: State:[place] Patient Contact Information Contact Name:TIFFANIE Relationship:Daughter Address:[address] City:[place] Alternate Phone: State/Zip Code:[place] [address] Email: Financial Information Financial Class:BCOP Primary Plan Desc:[employer]AN Primary Plan Number:[id number] Secondary Plan Desc: Secondary Plan Number: Assessment Information LACE LACE Length of stay for Answers: 2 days current admission Acuity / Level of Answers: Yes Care: Did the patient have an inpatient admission? Comorbidities - select Answers: Other Notes: MS all that apply # of Emergency department Answers: 1-2 visits in the last 6 months Score: 7 Date Signed: 04/14/2018 11:34 AM Electronically Signed By:Nancy Mckeon RN [facility] VERITO Progress Note CM Note CM Note Notes: VERITO spoke to Giselle Mota NP regarding this pt. Pt is a 83 y/o female admitted for weakness. Pt uses a motorized wheelchair at baseline. Therapies have been ordered and awaiting recommendations. Needs are TBD at this time. CM to follow. Plan: TBD Date Signed: 04/12/2018 01:23 PM Electronically Signed By:DARCI Forman [facility] CM Progress Note CM Note CM Note Notes: CM met w/ pt for dispo planning. Therapies are both recommending HC vs SNF. Pt reports that she uses a motorized wheelchair to get around. Pt feels that she is pretty much at her baseline. Pt reports that she has left sided weakness due to her MS. Pt would like HC. CM made a referral to [facility]. [facility] is able to accept. CM to follow. Plan: [facility]: PT, OT, SPL Date Signed: 04/13/2018 11:10 AM Electronically Signed By:DARCI Forman [facility] CM Progress Note CM Note CM Note Notes: Spoke w/pt and dtr, will dc home w/[facility] (RN/PT/OT/VENEER JOINTER OPERATOR) Date Signed: 04/14/2018 11:57 AM Electronically Signed By:Nancy Mckeon RN Case Management Discharge Plan Note Case Management Discharge Discharge Order Complete? Answers: Yes Patient to Obtain Answers: via Family Medications Transportation Arranged Answers: Family/Friends Faxed Final Orders Answers: Yes Agency/Facility Transfer Answers: Yes Report Printed & Faxed to Receiving Agency Family Notified Answers: Yes Discharge Comments Notes: D/w MD DO [facility], final orders inTerese [facility] at [facility] notifed, MD DO [facility] adding VENEER JOINTER OPERATOR. Date Signed: 04/14/2018 12:02 PM Electronically Signed By:Nancy Mckeon RN Intervention Information
== END 2018-04-14 13:03 | disposition home health service (06) | DRG 690 ==
LOC: EDUNIT# → F3N 13:05 → OBSVTOIN 04-12 12:25
PROVIDERS: ADMIT Internal Medicine; ATTEND Internal Medicine
DX: N39.0 Urinary tract infection, site not specified (principal); G93.40 Encephalopathy, unspecified; E86.0 Dehydration; G35 Multiple sclerosis; I10 Essential (primary) hypertension; E03.9 Hypothyroidism, unspecified; E87.6 Hypokalemia; Z99.3 Dependence on wheelchair; Z66 Do not resuscitate
CPT/HCPCS: 82435-PO; 82565-PO; 82947-PO; 84132-PO; 84295-PO; 84484-ER; 84520-PO; 85014-ER; 92507-GN; 92523-GN; 92526-GN; 92610-GN; 97161-GP; 97166-GO; 97530-GP; 97535-GO; G0378; J0696; J1650

== ENCOUNTER → 2018-06-11 | Outpatient (CLI) | payer BC | LOC: BMCIMAGING 13:01 | PROVIDERS: ATTEND Physician Assistant Medical | DX: S52.502A Unspecified fracture of the lower end of left radius, initial encounter for closed fracture (principal) ==